=== PATIENT | male | born 1975 | race Caucasian/White ===

== ENCOUNTER 2019-05-03 00:54 | Emergency (ER) | payer OTHER ==
[~2019-05-03] VITALS: Ht 180.3 cm; Wt 95.3 kg
[2019-05-03 01:01] VITALS: BP 147/91
[2019-05-03] MEDS ORDERED: AMOXICILLIN 50500 MG PO (01:04)
[2019-05-03] MEDS ORDERED: NORCO 7.5-3251 EACH PO (01:44)
== END 2019-05-03 02:00 | disposition home or self-care (01) ==
LOC: M.ERS 00:54
DX: J02.9 Acute pharyngitis, unspecified (principal)